=== PATIENT | female | born 1940 | race Caucasian/White ===

== ENCOUNTER → 2016-08-04 | Outpatient (CLI) | payer OTHER ==
[~2016-08-04] MED LIST: ADULT LOW STREN81 M3 PO; CALCIUM 600 +1 EAC6 PO; GLUCOPHAGE500 MG PO; LO-DOSE ASPIRIN81 M1 PO; METAMUCIL POWD288 GM PO; METAMUCIL POWD822 GM PO; METFORMIN HCL500 MG PO; NORVASC5 MG PO; OSTERA TABLET1 EACH; SIMVASTATIN20 MG PO; VALSARTAN-HCTZ1 EAC1 PO; VITAMIN B-12500 MC3 PO; VITAMIN B-650 M1 PO; VITAMIN B12-FO1 EACH PO; VITAMIN B6100 MG PO; VITAMIN D31000 UNI2 PO; VITAMIN D31000 UNIT PO; ZANTAC150 MG PO; ZOCOR10 M1 PO; ZOCOR20 MG PO
== END | disposition home or self-care (01) ==
LOC: RAD 09:45
DX: R05 Cough (principal); I70.0 Atherosclerosis of aorta; M47.9 Spondylosis, unspecified
CPT/HCPCS: 71020

== ENCOUNTER 2016-08-28 05:09 | Emergency (ER) | payer OTHER ==
[~2016-08-28] VITALS: Ht 162.6 cm; Wt 62.6 kg
[2016-08-28 05:42] LABS: CHLORIDE 100 mEq/L (99-109); SODIUM 136 mEq/L (136-147)
[2016-08-28 05:43] LABS: GLUCOSE 168 mg/dL (70-99)
[2016-08-28 05:45] LABS: ANION GAP 10 MEQ/L (2-14)
[2016-08-28 05:47] LABS: GFR ESTIMATE (CALCULATED) 57 mL/min/
[2016-08-28 05:48] LABS: UREA NITROGEN (BUN) 15 mg/dL (9-23)
[2016-08-28 05:52] LABS: TROP-I INTERPRETATION NEGATIVE; TROPONIN-I < 0.01 ng/mL (0.0-0.30)
[2016-08-28 07:03] LABS: HEMATOCRIT 38.5 % (36.0-46.0); MCH 31.7 PG (29.0-34.0); MCHC 33.5 G/DL (30.0-36.0); MCV 94.6 FL (83-99); MEAN PLAT.VOLUME 10.9 uM^3 (9.5-12.4); PLATELET COUNT 180 K/uL (156-360); RBC DIS.WIDTH-CV 12.8 % (11.8-14.6); RBC DIS.WIDTH-SD 44.6 % (39-53); RED BLOOD COUNT 4.07 M/uL (3.80-5.20)
[2016-08-28 07:07] LABS: WHITE BLOOD COUNT 7.8 K/uL (4.1-10.2)
[2016-08-28 08:14] LABS: ALKALINE PHOSPHATASE 70 IU/L (3-129); DIRECT BILIRUBIN 0.1 mg/dL (0.0-0.3); SAMPLE HEMOLYSIS CHECK 0; SAMPLE ICTERIC CHECK 0; SAMPLE LIPEMIA CHECK 0; TOTAL BILIRUBIN 0.6 MG/DL (0.0-1.0)
[2016-08-28 08:41] LABS: LIPASE 15 U/L (1.0-51.0)
[2016-08-28 09:50] LABS: TROP-I INTERPRETATION NEGATIVE; TROPONIN-I < 0.01 ng/mL (0.0-0.30)
[2016-08-28 10:22] VITALS: BP 154/90
== END 2016-08-28 10:23 | disposition home or self-care (01) ==
LOC: EME 05:09
PROVIDERS: Emergency Medicine
DX: R07.89 Other chest pain (principal); R10.13 Epigastric pain; R14.2 Eructation; I10 Essential (primary) hypertension; E11.9 Type 2 diabetes mellitus without complications; Z79.82 Long term (current) use of aspirin
CPT/HCPCS: 71020; 80048; 80076; 83690; 84484; 85027; 93005; 99281; 99283